=== PATIENT | male | born 1970 | race Caucasian/White ===

== ENCOUNTER 2024-01-25 06:19 | Inpatient (IN) | payer OTHER, SELFPAY ==
[2024-01-25] VITALS (7 sets, daily range): BP systolic 105–137; BP diastolic 66–82; BMI 29.5; BMI 27.9
[2024-01-25 04:10] LABS: % Basophils 0.5 % (0-2); % Eosinophils 2.2 % (0-6); % Immature Granulocytes 0.4 % (0-0.5); % Lymphocytes 18.7 % (20.5-51.1); % Monocytes 11.2 % (1.7-9.3); Absolute Eosinophils 0.2 10^3/uL (0-0.7); Absolute Lymphocytes 1.5 10^3/uL (1.2-3.4); Absolute Monocytes 0.9 10^3/uL (0.1-0.6); Absolute Neutrophils 5.4 10^3/uL (1.4-6.5); Hematocrit 37.8 % (39.0-52.0); Hemoglobin 13.2 g/dL (13.0-18.0); Mean Corp Hgb Conc. 34.9 g/dL (33.0-37.0); Mean Corpuscular Hgb 30.8 pg (27.0-31.0); Mean Corpuscular Volume 88.1 fL (80.0-94.0); Mean Platelet Volume 11.9 fL (7.4-10.4); Nucleated Red Blood Cells % 0 % (-); Platelet Count 136 10^3/uL (130-400); Red Blood Cell Count 4.29 10^6/uL (4.70-6.10); Red Cell Dist. Width 12.8 % (11.5-14.5)
[2024-01-25] MEDS: NSS 1000 IV ×2 (04:25→09:41)
[2024-01-25] MEDS: TORADOL 30 MG IV (04:26)
[2024-01-25] MEDS: DECADRON 10 MG IV (04:26)
[2024-01-25 04:27] LABS: Lactic Acid 0.7 mmol/L (0.7-2.0)
[2024-01-25] MEDS: ZOSYN 100 IV (04:29)
[2024-01-25 04:39] LABS: Blood Urea Nitrogen 19 mg/dl (9-20); Calcium 8.9 mg/dl (8.4-10.2); Carbon Dioxide 24 mmol/L (22-30); Chloride 107 mmol/L (98-107); Estimated Creatinine Clearance 94 ml/min; Glucose 99 mg/dl (70-99); Potassium 3.9 mmol/L (3.5-5.1); Sodium 136 mmol/L (135-145); eGFR > 60.00
--- NOTE | 2024-01-25 05:39 | ED.GENMED ---
History of Present Illness
General
Chief Complaint: Throat Problem
Source: patient
Exam Limitations: none
Time Seen by Provider: 01/25/24 03:40
Nursing documentation reviewed up to this point in time: agreed with
Travel History
Have you had any contact with someone who has COVID-19?: No
Do you have any symptoms of coronavirus? Fever > 100 degrees, chills, cough, shortness of breath, sore throat, loss of taste or smell, muscle aches, or headache?: No
History of Present Illness
History of Present Illness:
This is a 53-year-old gentleman with no significant past medical history save for anxiety, maintained on Lexapro. He complains of right-sided sore throat that began 4 days ago, progressively worse and presented to PCP on Friday, 2 days ago where
rapid strep was negative but started on a Z-Alfredo that day. Despite initiation of antibiotic right-sided sore throat has worsened with significant pain right posterior throat that radiates to his right ear and a sense of swelling right anterolateral
neck region and difficulty swallowing. He denies cough nor shortness of breath, he does note significant pain with swallowing but is able to do so without regurgitation.
He has not had a fever nor chills.
He has been taking Tylenol as well as ibuprofen 400 mg with only minimal improvement in pain. His last dose of Tylenol was 11:45 PM. His last dose of ibuprofen 400 mg was at 1:30 AM.
No history of similar episodes of sore throats in the past. No close contacts with similar symptoms.
He is a lifelong non-smoker.
Past History
Past History
ED Past Medical History: Psychiatric (Anxiety)
ED Past Surgical History: None
Social History
Tobacco: Non-smoker
Alcohol: None
Drug: None
Personal:
Living: with family
Employment: Employed
Family History
Family History: Other (Noncontributory)
Phy Exam
Physical Exam
Physical Exam:
GENERAL: 53-year-old male appears his stated age, awake and alert, appears mildly uncomfortable related to pain. Easily communicative. No stridor nor evidence of difficulty swallowing. Handling secretions well.
EYE: anicteric
NECK: Supple, mild fullness right submandibular, right anterior superior cervical region with moderate local tenderness to palpation, no meningismus, mild submandibular adenopathy on the right that is moderately tender to palpation.
ENT: There is moderate right tonsillar swelling, moderate right tonsillar redness and injection that extends mildly to the right posterior pharynx as well as right posterior pharynx inferiorly. Tongue is midline, no sublingual edema nor swelling.
There is no exudate nor ulcerations. Oral mucosa is moist. The right TM is retracted and moderately injected superiorly. No evidence of middle ear effusion. Left TM is clear. Nares patent.
CARDIAC: Regular rate and rhythm. no murmur.
LUNGS: Clear breath sounds bilaterally, no acute respiratory distress, no wheezes/rales/rhonchi
ABDOMEN: Soft, nondistended, without focal tenderness, normoactive BS.
NEUROLOGICAL: Alert and oriented x3, no focal neuro deficits. Gait is steady.
SKIN: Warm and dry, normal color, skin intact. No rash.
MUSCULOSKELETAL: No C/C/E. peripheral pulses are full and equal b/l. No palpable tenderness.
PSYCH: Normal and appropriate interaction.
Course
Orders/Labs/Results
Orders:
Orders
01/25/24 03:53
CT Neck With Iv Contrast Urgent
Comment:
Reason For Exam: R tonsillar swelling/pain
0.9% Sodium Chloride 1000 ml [Nss] 1,000 ml IV BOLUS
Dexamethasone Sod Phosphate [Decadron] 10 mg IV NOW STA
Ketorolac [Toradol] 30 mg IV NOW STA
Piperacillin/Tazo 4.5 Gram [Zosyn] 4.5 gram in 100 ml IV NOW
01/25/24 04:06
Basic Metabolic Panel Urgent
Complete Blood Count/With Diff Urgent
Lactic Acid Urgent
01/25/24 05:54
Admit/Transfer Patient As Directed
Co-Sign Provider:
Level of Care: Inpatient admission
Assign to:: Telemetry
Physician / Group: htay
Diagnosis: Acute mild epiglottis, supragloritis.
Reason for Telemetry: Other
Other Reason for Telemetry: at risk for Upper AW obtruction
Date to Stop Telemetry: 01/27/24
Time to Stop Telemetry: 11:00
Reason for Hospitalization: Acute mild epiglottis, supragloritis.
Expected length of stay greater than two midnights?: Yes
ELOS- Estimated Length of Stay in days: 2
I certify the patient meets the requirements for IP care: Yes
01/25/24 05:56
Code Status As Directed
Resuscitation Status: Full Code
01/27/24 11:00
DC Protocol for Telemetry ONCE
Abnormal Lab Results
01/25/24
04:06
RBC 4.29 L 10^6/uL
(4.70-6.10)
Hct 37.8 L %
(39.0-52.0)
MPV 11.9 H fL
(7.4-10.4)
Absolute Monos (auto) 0.9 H 10^3/uL
(0.1-0.6)
Lymphocytes % 18.7 L %
(20.5-51.1)
Monocytes % 11.2 H %
(1.7-9.3)
01/25/24 04:06
01/25/24 04:06
Vital Signs
Initial and Last Documented VS:
Initial Vital Signs
Temp Pulse Resp BP Pulse Ox
97.8 F 70 20 126/82 100
01/25/24 03:07 01/25/24 03:07 01/25/24 03:07 01/25/24 03:07 01/25/24 03:07
Last Documented Vital Signs
Temp Pulse Resp BP Pulse Ox
97.7 F 58 16 105/80 99
01/25/24 04:59 01/25/24 04:59 01/25/24 04:59 01/25/24 04:59 01/25/24 04:59
MDM/Problems Addressed
Differential Diagnosis Includes:
History and exam concerning for right peritonsillar abscess, other concern is retropharyngeal/parapharyngeal abscess.
There is no airway compromise, no stridor and patient handling secretions well.
Will check labs and plan for CT of the neck with IV contrast.
Will give an IV dose of Toradol for pain, IV Decadron and an IV dose of Zosyn.
*Radiology
Radiology exam reviewed: radiology read reviewed (CT shows no abscess, patent airway but mild edematous appearance of the epiglottis which could reflect epiglottitis/supraglottitis)
*Pulse Oximetry
Patient hypoxic: no
*Caster Operator Interpretation
Rate: normal
Interpretation: normal
Rhythm: sinus
*Critical Care Note
Total Time (30-74mins, 75-104mins- exclusive of procedures): Not Applicable
Update Note
Update Note:
01/25/2024 05:40 AM
Patient feeling markedly improved after IV Toradol, IV fluids, Decadron and antibiotic.
Labs are reassuring with normal white blood cell count, normal chemistries and normal lactic acid.
CAT scan shows no evidence of abscess and patent airway but there is note of mild edematous appearance of the epiglottis which could reflect epiglottitis/supraglottitis.
As patient has had worsening sore throat and swelling despite initiation of antibiotics over 48 hours ago, he has essentially failed oral antibiotics and there is significant concern, risk of progression of epiglottitis, concern for potential airway
compromise therefore recommend hospitalization to continue IV antibiotics, steroids and pain control.
Will admit to hospitalist service, could consider ENT evaluation but at this point there is no evidence of abscess on CT.
ED Attending Note
-
Portions of this chart may have been created with voice recognition software.� Occasional wrong word or��sound alike� substitutions may have occurred due to the inherent limitations of voice recognition software.
Discharge Plan
Departure
Patient Disposition: Admit
Date of Disposition: 01/25/24
Time of Disposition: 05:41
Admit to: Med/Surg
Admit to doctor: Htay
Presentation/result/management discussed w/ accepting MD/DO: Hospitalist
Condition: Fair
Discharge Problem:
Acute supraglottitis with epiglottitis in adult
Interventions
Interventions:
*Risk Screen - Suicide Last Done: 01/25/24 03:07
*General Assessment Last Done: 01/25/24 03:17
*Neglect/Abuse Screening Last Done: 01/25/24 03:07
ED- Fall Risk Assessment Last Done: 01/25/24 03:25
*ED COVID-19 Vaccine History Last Done: 01/25/24 03:17
ED-EENT Assessment Last Done: 01/25/24 03:25
ED- Pulmonary Assessment Last Done: 01/25/24 03:25
--- NOTE | 2024-01-25 05:50 | HPS.HSE ---
Family Physician
-
Family Physician: Lemuel Hardin
Chief Complaint
-
Rt sided sore throat
History of Present Illness
53M No significant PMHx pw Rt sided sore throat on Z Oack
Sore throat on Day Z pack
increasing pain and swelling at Rt neck
Pain radiated to Rt ear
Afebrile , nl WCC
No tachycardic
No acute stridor
Medical History
Past Medical History
Past Medical History: Reports None
Past Surgical History: Reports None
Social History
Tobacco: Non-smoker
Alcohol: None
Personal:
Living: With Family
Family History
Family History: Not pertinent
Allergies / Home Medications
Allergies reflects when Allergies were last updated in [facility].
Home Medications with original date entered in [facility]
Allergy/Medication List:
Allergies
Allergy/AdvReac Type Severity Reaction Status Date / Time
No Known Allergies Allergy Verified 01/25/24 03:12
Home Medications
escitalopram oxalate 5 mg tablet (Lexapro) 5 mg PO DAILY 01/25/24
Review of Systems
-
Constitutional: Reports No Symptoms
EENT: Reports Sore Throat (Rt side )
Respiratory: Reports No Symptoms
Cardiac: Reports No Symptoms
Abdomen/GI: Reports No Symptoms
: Reports No Symptoms
Musculoskeletal: Reports No Symptoms
Skin: Reports No Symptoms
Neurological: Reports No Symptoms
Endocrine: Reports No Symptoms
Hematologic/Lymphatic: Reports No Symptoms
Psych: Reports No Symptoms
Physical Exam
Vital Signs
Vital Signs
Temp Pulse Resp BP Pulse Ox
97.7 F 58 16 105/80 99
01/25/24 04:59 01/25/24 04:59 01/25/24 04:59 01/25/24 04:59 01/25/24 04:59
Physical Exam
General: No Apparent Distress, Comfortable, Conversant and Other (not toxic looking ); No Fever, Chills or Sweats
HEENT: NormoCephalic, Anicteric and Other (Rt sided dperitonsilar enlargement , Rt submandibular fullness )
Respiratory: Clear; No Wheezes, Rales or Rhonchi
Cardiac: S1/S2 and Regular Rhythm; No Tachycardia or Murmur
Breast: Deferred by me
GI: Soft, Non Tender, Non Distended and Normal Bowel Sounds
Rectal: Deferred by Provider
Genito-urinary: Deferred by me
Musculoskeletal: No Cyanosis
Skin: Warm and Dry
Neuro: AO x 3
Psych: Calm
Laboratory Results
-
01/25/24 04:06
01/25/24 04:06
Laboratory Results
Lactic Acid 0.7 mmol/L (0.7-2.0) 01/25/24 04:06
Data Reviewed
-
CT Scan: Discussed with Physician
Lab Data: Labs Reviewed by me
Impression/Plan
-
Data
nl WCC
unremarkable BMP
nl LA
Neck CT; Prelim report
No peritonsillar abscess
Concern for mild epiglottis, supraglottis. Widely patent airway.
ASSESSMENT & PLAN
Acute mild epiglottis, supraglottis.
Widely patent airway.
No peritonsillar abscess
Not toxic looking
- agree wit IV Decadron
- cont Zosyn
- IVF
- ENT consulted
DVT Px: SCD
Code: Full code
IP MS
[2024-01-25] MEDS: LEXAPRO 5 MG PO (09:40)
[2024-01-25] MEDS: DECADRON 4 MG IV ×2 (09:41→21:07)
[2024-01-25] MEDS: ZOSYN 50 IV (09:42)
--- NOTE | 2024-01-25 09:51 | PTCARENOTE ---
pt admitted AOx3 no C/O pain LCTA on RA B/L abd soft NT +BSX4. last BM yesterday, cont b&B. no edema +PP B/L skin cdi CB in reach
--- NOTE | 2024-01-25 14:54 | CON.MD ---
Consultation - Medical
-
dictated.
R tonsillitis/pharyngitis, no evidence of epiglottitis or abscess. Doing dramatically better already.
I convinced him to stay overnight to receive at least 24 hrs of iv abx.
If still doing great tomorrow, dc to home on po abx, suggest augmentin, and steroid taper.
--- NOTE | 2024-01-25 15:16 | CON.ID ---
Consultation
-
Date/Time Consultation Requested: 01/25/24 9:41
Date/Time Consultation Performed: 01/25/24 15:18
Requesting Provider: Dr Parsons
Performing Provider: Dr Pinon
Reason for Consultation: Suspected epiglottis, severe throat pain, h/o mononucleosis
Chief Complaint / Past History
Chief Complaint
right sided sore throat
History of Present Illness
Mr Tam is a 53 year old male without significant past medical history who developed a severe right sided throat that progressed to swelling, no improvement on zpack, no fevers or chills. No difficulty breathing or swallowing. Presented Here
Since arrival he has been afebrile, bp stable, wbc 8.0, hgb 13, plt 136, no left shit there is monocytosis, cr 0.9, lactic acid 0.7, CT neck with IV contrast: R tonsillitis, lymphadenopathy possible epiglottis, seen by ENT assessed as R
tonsillitis/pharyngitsi withotu epiglottitis or abscess, currently on zosyn and steroids ENT noting improving already. ID is consutled for assistance with management
Past History
Additional Past Medical History:
on lexapro
Additional Past Surgical History:
none
Allergy History:
No Known Allergies Allergy (Verified 01/25/24 03:12)
Medications Reviewed: Yes
Social History
Tobacco: Non-Smoker
Alcohol: None
Personal:
Family History
Family History: Not Pertinent
Review of Systems
Review of Systems
General: Negative Fever or Chills
All systems: All other systems were reviewed and were negative
Vital Signs
Temp Pulse Resp BP Pulse Ox
98.2 F 73 16 117/76 98
01/25/24 11:34 01/25/24 11:34 01/25/24 11:34 01/25/24 11:34 01/25/24 11:34
Physical Exam
Physical Exam
Constitutional: No Acute Distress
Pharynx: Other (mild right sided tonsillitis, no visible swelling of the neck on external exam at this time; not hoarse)
Cardiovascular: Regular Rate and S1/S2; Negative Murmur or Rub
Pulmonary: Clear and Symmetric; Negative Wheezes, Rales or Rhonchi
Gastrointestinal: Soft, Non Tender, Non Distended and Normal Bowel Sounds
Skin: Warm and Dry; Negative Rash or Jaundice
Lab / Diagnostic Study Results
01/25/24 04:06
01/25/24 04:06
Abs Immat Gran (auto) 0.0 10^3/uL (0-0.05) 01/25/24 04:06
Absolute Neuts (auto) 5.4 10^3/uL (1.4-6.5) 01/25/24 04:06
Absolute Lymphs (auto) 1.5 10^3/uL (1.2-3.4) 01/25/24 04:06
Absolute Monos (auto) 0.9 10^3/uL (0.1-0.6) H 01/25/24 04:06
Absolute Basos (auto) 0.0 10^3/uL (0-0.2) 01/25/24 04:06
Immature Gran % 0.4 % (0-0.5) 01/25/24 04:06
Neutrophils % 67.0 % (42.2-75.2) 01/25/24 04:06
Lymphocytes % 18.7 % (20.5-51.1) L 01/25/24 04:06
Monocytes % 11.2 % (1.7-9.3) H 01/25/24 04:06
Eosinophils % 2.2 % (0-6) 01/25/24 04:06
Basophils % 0.5 % (0-2) 01/25/24 04:06
Lactic Acid 0.7 mmol/L (0.7-2.0) 01/25/24 04:06
Assessment / Plan
Tonsillitis/pharyngitis
- epiglottits ruled out by ENT
- start unaysn for tonight, in AM would switch to augmenting for 7-14 more days
- steroid taper per primary team
- follow up with PCP
[2024-01-25] MEDS: UNASYN IV ×2 (17:20→23:50)
--- NOTE | 2024-01-25 18:00 | W.PN.HOSP.TC ---
Today's Communication/Plan
-
Unasyn -- continue
Stop IV steroids after tonight
Steroid taper from tomorrow
Likely can be discharged tomorrow with Augmentin as below
Appreciated ID and ENT consultations
Assessment / Plan
Assessment / Plan
Physical Exam
General: No Acute Distress
HEENT: Normocephalic; right sided tonsillitis, no lymph nodes were palpable
Cardiovascular: Regular Rate and S1/S2
Pulmonary: Clear to Auscultation Bilaterally
Gastrointestinal: Soft, Non Tender, Non Distended and Normal Bowel Sounds
Skin: Warm and Dry
Psych: Calm
Assessment/Plan
Right tonsillitis
Right pharyngitis
Widely patent airway.
No peritonsillar abscess
Not toxic looking
- No evidence of epiglottitis or abscess
- Stop IV steroids after tonight
- Start PO steroid taper in the morning of 01/26/24
- Status post Zosyn
- ID consulted, recommendations appreciated
- Unasyn started -- continue
- In the morning, switch to Augmentin for an addition 7 to 14 days
- ENT consulted, recommendations appreciated
Anxiety
History of Thrombocytopenia
DVT Prophylaxis: Lovenox
Code: Full code
Anticipated Discharge: Within 24 hours
Subjective/Interval History
-
Date of Service: January 25, 2024
Patient was seen and examined. His throat pain may have somewhat improved. He wants a regular diet, and denied any other new symptoms or complaints.
Objective Data
-
Vital Signs:
Vital Signs
Temp Pulse Resp BP Pulse Ox
98.5 F 94 16 137/75 100
01/25/24 16:06 01/25/24 16:06 01/25/24 16:06 01/25/24 16:06 01/25/24 16:06
[2024-01-26 02:58] VITALS: BP 108/70
[2024-01-26] MEDS: NSS 1000 IV (04:55)
[2024-01-26] MEDS: UNASYN IV (05:31)
[2024-01-26 07:00] VITALS: BP 116/76
[2024-01-26 07:35] LABS: Hematocrit 38.7 % (39.0-52.0); Hemoglobin 13.3 g/dL (13.0-18.0); Mean Corp Hgb Conc. 34.4 g/dL (33.0-37.0); Mean Corpuscular Hgb 30.9 pg (27.0-31.0); Mean Corpuscular Volume 89.8 fL (80.0-94.0); Mean Platelet Volume 12.4 fL (7.4-10.4); Platelet Count 154 10^3/uL (130-400); Red Blood Cell Count 4.31 10^6/uL (4.70-6.10); Red Cell Dist. Width 12.6 % (11.5-14.5); White Blood Cell Count 10.3 10^3/uL (4.8-10.8)
[2024-01-26] MEDS: LEXAPRO 5 MG PO (07:55)
[2024-01-26] MEDS: DELTASONE 40 MG PO (07:55)
--- NOTE | 2024-01-26 07:59 | W.PN.ENT ---
Today's Communication
-
acute tonsillitis/pharyngitis, dramatically better
Recommend dc to home, augmentin x7 days, probably does not even need steroids. gargle. f/u if recurs.
Impression / Plan
-
acute tonsillitis/pharyngitis, dramatically better
Recommend dc to home, augmentin x7 days, probably does not even need steroids. gargle. f/u if recurs.
Subjective Data
-
still feels great, no pain, no dyspnea, + full po's
Objective Data
-
Vital Signs
Temp Pulse Resp BP Pulse Ox
97.8 F 74 18 116/76 97
01/26/24 07:00 01/26/24 07:00 01/26/24 07:00 01/26/24 07:00 01/26/24 07:00
Intake & Output
01/25/24 01/26/24 01/27/24
06:59 06:59 06:59
Intake:
Oral fluids 1800 / 1800
Other:
Number of approximated MODERATE 2
amounts of urine
Lab Results
01/26/24 07:13
Calcium 8.9 mg/dl (8.4-10.2) 01/25/24 04:06
Physical Exam
-
OC/OP 1+ tonsils, no erythema, no exudate, no bulging of palate, uvula midline
Neck w/o tendernss or mass
[2024-01-26 08:11] LABS: Blood Urea Nitrogen 15 mg/dl (9-20); Calcium 9.1 mg/dl (8.4-10.2); Carbon Dioxide 23 mmol/L (22-30); Chloride 107 mmol/L (98-107); Estimated Creatinine Clearance 106 ml/min; Glucose 124 mg/dl (70-99); Potassium 4.2 mmol/L (3.5-5.1); Sodium 137 mmol/L (135-145); eGFR > 60.00
[2024-01-26 11:00] VITALS: BP 126/79
--- NOTE | 2024-01-26 11:02 | W.PN.HOSP.TC ---
Today's Communication/Plan
-
Discharge
Assessment / Plan
Assessment / Plan
Gen-AAOx3, NAD
HEENT-NC, AT, anicteric, clear oral mm, mild right-sided tonsillar enlargement
Neck-supple
CV-reg, no M, +S1/S2
Lungs-clear B/L
Abd-soft, NT, ND
Ext-no edema
Musculoskeletal-no cyanosis, clubbing
Skin-warm and dry
Neuro-grossly non-focal
Psych-calm, cooperative
Acute tonsillitis/pharyngitis -clinically improved. Convert to Augmentin x 10 days. Follow-up as outpatient. Agree with stopping steroids.
No peritonsillar abscess
Not toxic looking
Anxiety
History of Thrombocytopenia
DVT Prophylaxis: Lovenox
Code: Full code
Dispo -medically stable for discharge.
Anticipated Discharge: Today
Subjective/Interval History
-
Date of Service: January 26, 2024
Patient seen and examined. Feeling much better. No complaints. Eager to go home.
Objective Data
-
Labs:
Laboratory Results
01/26/24
07:13
WBC 10.3
Hgb 13.3
Hct 38.7 L
Plt Count 154
Sodium 137
Potassium 4.2
Chloride 107
Carbon Dioxide 23
BUN 15
Creatinine 0.8
Glucose 124 H
Calcium 9.1
Vital Signs:
Vital Signs
Temp Pulse Resp BP Pulse Ox
97.8 F 74 18 116/76 96
01/26/24 07:00 01/26/24 07:00 01/26/24 07:00 01/26/24 07:00 01/26/24 08:50
I&O
01/25/24 01/26/24 01/27/24
06:59 06:59 06:59
Intake Total 1800 / 1800
Balance 1800 / 1800
Review of Systems
-
History Source: Patient
All other systems: Reviewed and negative
--- NOTE | 2024-01-26 11:05 | W.DS.TRANS ---
DC Summary - Director Of Rooms
-
Discharge Instructions:
Discharge Diagnosis/Procedures Acute tonsillitis/pharyngitis
Diet Regular
Activity No restrictions
Driving Restrictions As prior to admission
Bathing Restrictions None
Instructions:
Stand-Alone Forms:
Changes to Home Medications: No
Discharge Medications:
DC Medications w/original date entered in [facility]
escitalopram oxalate 5 mg tablet (Lexapro) 5 mg PO DAILY Mental Health/Anxiety 01/25/24
amoxicillin 875 mg-potassium clavulanate 125 mg tablet 1 tab PO BID #20 tabs 01/26/24
Home Medication Changes
Pending Results: No
--- NOTE | 2024-01-26 15:48 | CM ---
Alert awake oriented patient who lives with his Beata who lives in a 2 story home with 2 step to enter and 14 steps to bed and bathroom. He is independent in driving and in all activities of daily living.He was offered VN he declined need.He
said he was driving himself home.
No VN hx / No SNF history
Pharmacy [facility]
PCP DR Hardin
PLAN Home Declined VN
== END 2024-01-26 12:22 | disposition home or self-care (01) | DRG 153 ==
LOC: 3 WEST ACU 06:19
PROVIDERS: ADMITTING PHYSICIAN Internal Medicine; ATTENDING PHYSICIAN Hospitalist; CONSULT PHYSICIAN Otolaryngology; CONSULT PHYSICIAN Student in an Organized Health Care Education/Training Program; EMERGENCY PHYSICIAN Emergency Medicine; FAMILY PHYSICIAN Physician Assistant Medical
DX: J02.9 Acute pharyngitis, unspecified (principal); J35.1 Hypertrophy of tonsils; R59.0 Localized enlarged lymph nodes; F41.9 Anxiety disorder, unspecified
CPT/HCPCS: 70491; 80048; 83605; 85025; 85027; 96361; 96365; 96375; 99285; Q9967

== ENCOUNTER 2025-07-15 04:23 | Emergency (ER) | payer BC, SELFPAY ==
[2025-07-15 04:26] VITALS: BP 134/86
--- NOTE | 2025-07-15 04:51 | ED.GENMED ---
History of Present Illness
General
Chief Complaint: Skin Problem
Source: patient
Exam Limitations: none
Time Seen by Provider: 07/15/25 04:41
Nursing documentation reviewed up to this point in time: agreed with
History of Present Illness
History of Present Illness:
Patient started on Keflex yesterday by PCP, with concern for left index finger infection, presents to ED secondary to worsening pain, despite taking 3 doses of Keflex. Denies fever or chills. Denies nausea or vomiting. Patient states that 4 days
ago, he noted what appeared to be a small pimple on top of his left index finger. Over the following 2 days, patient was able to squeeze and express 'pus'.
Past History
Past History
ED Past Medical History: Psychiatric (Anxiety)
ED Past Surgical History: None
Social History
Tobacco: Non-smoker
Alcohol: None
Drug: None
Personal:
Living: with family
Employment: Employed
Family History
Family History: Other (Noncontributory)
Review of Systems
Review of Systems
Allergies reviewed?: Yes
All Other Systems: ROS reviewed and negative except as documented in HPI and ROS
Constitutional: Reports no symptoms; Denies fever or chills
ABD/GI: Reports no symptoms
Musculoskeletal: Reports no symptoms
Skin: Reports other (Finger infection with pain)
Neurological: Reports no symptoms
Phy Exam
Physical Exam
Physical Exam:
Physical Exam
General: no apparent distress, not acutely ill. afebrile
Head: nc/at. eomi
Neck: supple. normal range of motion
Neuro: alert and oriented x 3. no focal neurological deficits
Skin: left 2nd prox phalanx, on dorsal aspect, an approx 0.5mm circular area of lesion with minimal surrounding erythema
Psychiatric: well kept. interactive and cooperative
Extremities: no edema. no calf tenderness.
Course
Vital Signs
Initial and Last Documented VS:
Initial Vital Signs
Temp Pulse Resp BP Pulse Ox
97.7 F 69 20 134/86 100
07/15/25 04:26 07/15/25 04:26 07/15/25 04:26 07/15/25 04:26 07/15/25 04:26
Last Documented Vital Signs
Temp Pulse Resp BP Pulse Ox
97.7 F 69 20 134/86 100
07/15/25 04:26 07/15/25 04:26 07/15/25 04:26 07/15/25 04:26 07/15/25 04:51
MDM/Problems Addressed
MDM/Problems Addressed:
History and exam consistent with likely early cellulitic changes noted on top of left finger, well localized. Hard to determine whether or not patient is failing on Keflex, has he has only taken 2 doses. Patient without any systemic symptoms, nor
physical exam findings concerning for significant extension, nor crossing any joints, i.e. wrists. As such, after discussion, patient will be advised Keflex 4 times daily x 7 days and warm compress application, along with PCP follow-up, or consider
return to with significant worsening symptoms. Patient expresses understanding at time of discharge.
*Pulse Oximetry
SaO2: 100
Oxygen Mode of Delivery: Room air
Patient hypoxic: no
*Critical Care Note
Total Time (30-74mins, 75-104mins- exclusive of procedures): Not Applicable
ED Attending Note
-
Portions of this chart may have been created with voice recognition software.� Occasional wrong word or��sound alike� substitutions may have occurred due to the inherent limitations of voice recognition software.
Discharge Plan
Departure
Patient Disposition: Home (Routine Discharge)
Date of Disposition: 07/15/25
Time of Disposition: 04:51
Patient with high blood pressure during this ER visit?: Yes
Condition: Good
Discharge Problem:
Cellulitis
Instructions: Cellulitis (Skin Infection), Adult (DC)
Prescriptions:
New
cephalexin 500 mg capsule
500 mg PO QID Qty: 8 0RF
No Action
escitalopram oxalate [Lexapro] 5 mg Tablet
5 mg PO DAILY
amoxicillin-pot clavulanate 875-125 mg tablet
1 tab PO BID Qty: 20 0RF
Activity Restrictions/Additional Instructions:
As discussed, please follow-up with your primary care physician for reevaluation. Please consider return to ED with significantly worsening symptoms.
Interventions
Interventions:
*Risk Screen - Suicide Last Done: 07/15/25 04:26
*General Assessment Last Done: 07/15/25 04:26
*Neglect/Abuse Screening Last Done: 07/15/25 04:26
*ED- Fall Risk Assessment Last Done: 07/15/25 04:26
*ED COVID-19 Vaccine History Last Done: 07/15/25 04:26
*ED Influenza Vaccine History Last Done: 07/15/25 04:26
Discharge Date and Time
Print Language: [place]
== END 2025-07-15 05:35 | disposition home or self-care (01) ==
LOC: EMR 04:23
PROVIDERS: EMERGENCY PHYSICIAN Emergency Medicine; FAMILY PHYSICIAN Physician Assistant Medical
DX: L03.012 Cellulitis of left finger (principal); L08.9 Local infection of the skin and subcutaneous tissue, unspecified; F41.9 Anxiety disorder, unspecified
CPT/HCPCS: 99282